=== PATIENT | female | born 1950 | race Caucasian/White ===

== ENCOUNTER → 2019-11-06 12:39 | Outpatient (CLI) | payer MEDICARE, OTHER, SELFPAY ==
--- NOTE | 2019-11-06 | DI.MRI.S_ITS ---
PROCEDURE: MR CERVICAL SPINE WO CON INDICATIONS: Cervicalgia TECHNIQUE: Noncontrast sagittal T1 spin echo and T2 fast spin echo, sagittal STIR, foraminal oblique sagittal T2 fast spin echo, and axial gradient echo or T2 fast spin echo through the cervical spine. COMPARISON: [facility], RG, SPINE CERVICAL MIN 4VW, 09/20/2019, 11:22. FINDINGS: Image quality: Excellent. Alignment and Curvature: There is normal bony alignment. Bone Marrow: Mild reactive endplate changes noted adjacent to the C3-C4, C4-C5, C5-C6 and C6-C7 discs.. Spinal Cord: Visualized spinal cord has normal size and signal. No cerebellar tonsillar herniation. Paraspinous Soft Tissues: No paravertebral masses. Prevertebral soft tissues are normal in thickness. C2-C3: Loss of disc signal. Mild, diffuse disc bulge. Mild bilateral facet hypertrophy. No central stenosis. Mild right and moderate left neural foraminal narrowing. No neural compression. C3-C4: Loss of disc signal and height. Moderate, diffuse disc bulge. Mild bilateral facet hypertrophy. Mild bilateral uncovertebral joint hypertrophy. Moderate to severe narrowing of the central canal. Severe bilateral neural foraminal narrowing with compression of the exiting C4 nerve roots. C4-C5: Loss of disc signal and height. Moderate to severe diffuse disc bulge. Mild bilateral facet hypertrophy. Moderate bilateral uncovertebral joint hypertrophy. Severe narrowing of the central canal with mild compression of the cervical spinal cord. Severe bilateral neural foraminal narrowing with compression of the exiting C5 nerve roots. C5-C6: Loss of disc signal and height. Moderate, diffuse disc bulge. Central/right central disc protrusion superimposed on diffuse disc bulge. Severe narrowing of the central canal with compression of the cervical spinal cord. Mild bilateral facet hypertrophy. Moderate bilateral uncovertebral joint hypertrophy. Severe bilateral neural foraminal narrowing with compression of the exiting C6 nerve roots. C6-C7: Loss of disc signal and height. Moderate, diffuse disc bulge. Moderate-sized central disc protrusion. Severe narrowing of the central canal with compression of the cervical spinal cord. Mild bilateral facet hypertrophy. Moderate bilateral uncovertebral joint hypertrophy. Severe bilateral neural foraminal narrowing with compression of the exiting C7 nerve roots. C7-T1: Slight loss of disc signal. Moderate right and mild left facet hypertrophy. No central stenosis. Mild right neural foraminal narrowing. No neural compression. IMPRESSION: 1. Multilevel degenerative disc disease. 2. Multilevel facet and uncovertebral arthropathy. 3. Severe C4-C5, C5-C6 and C6-C7 central canal narrowing. Moderate to severe C3-C4 central canal narrowing. 4. Severe bilateral C3-C4, C4-C5, C5-C6 and C6-C7 neural foraminal narrowing with compression of the exiting bilateral C4 nerve roots, exiting bilateral C5 nerve roots, exiting bilateral C6 nerve roots and exiting bilateral C7 nerve roots. Dictated by: Catrina Oconnor MD, PhD on 11/06/2019 at 16:56 Approved by: Catrina Oconnor MD, PhD on 11/06/2019 at 17:04
== END ==
PROVIDERS: PCP Specialist; Referring Provider Specialist; Visit Provider Orthopaedic Surgery
DX: M50.31 Other cervical disc degeneration, high cervical region (principal); M48.02 Spinal stenosis, cervical region; M47.812 Spondylosis without myelopathy or radiculopathy, cervical region
CPT/HCPCS: 72141

== ENCOUNTER 2020-09-02 11:03 | Outpatient (CLI) | payer MEDICARE, OTHER, SELFPAY ==
[2020-09-02] VITALS (10 sets, daily range): BP systolic 128–164; BP diastolic 78–101; PULSE 80–108; RESP 16–24; TEMP 35.8–37.1; O2SAT 96–99; BMI 53.4
--- NOTE | 2020-09-02 | DI.RAD.S_ITS ---
PROCEDURE: FL MEYELOGRAM SPINE CERVICAL WITH SEDATION COMPARISON: None. INDICATIONS: Arthrodesis status abnormalities of gait Technique: Potential risks and benefits of procedure fully explained to the patient. Patient reported clear understanding of the potential risks and benefits of the procedure and provided written, informed consent on September 02, 2020. Patient taken to the fluoroscopy suite placed in a oblique prone position on the fluoroscopy table. Access site at the L2-L3 level localized using fluoroscopic guidance. Access site prepped and draped in usual sterile fashion. Access site locally anesthetized using approximately 8 cubic centimeters 1% lidocaine solution. A 22 gauge spinal needle was advanced under fluoroscopic guidance into the intrathecal space at the L2-L3 level. 10 cubic centimeters of Isovue M 300 was injected the axis needle into the intrathecal space. Accessed needle was removed. Patient was placed in a head-down position to permit passage of contrast material from lumbar spine to the cervical spine. Procedure was terminated at this point. Patient was sent to the CT scanner in both hemodynamically neurologically stable condition. No immediate complications. 15 minutes of conscious sedation was administered during the study. Conscious sedation consisted of a total of 1 milligram of Versed and 50 micrograms of fentanyl IV. Patient's vital signs were continuously monitored by nursing staff during the procedure. IMPRESSION: Successful fluoroscopic guided cervical spine myelogram. No immediate complications. Dictated by: Catrina Oconnor MD, PhD on 09/02/2020 at 15:32 Approved by: Catrina Oconnor MD, PhD on 09/02/2020 at 15:37
--- NOTE | 2020-09-02 | DI.MRI.S_ITS ---
PROCEDURE: MR THORACIC SPINE WO CON INDICATIONS: Arthrodesis status abnormalities of gait TECHNIQUE: Noncontrast sagittal T1 spine echo and T2 fast spin echo, sagittal STIR, axial T1 and T2 fast spin echo through the thoracic spine. COMPARISON: None. FINDINGS: Image quality: Degraded by patient motion artifact. Alignment and Curvature: There is normal bony alignment. Bone Marrow: Small benign intraosseous hemangioma noted in the T5 vertebral body. Mild reactive endplate changes noted adjacent to the T6-T7 disc.. No acute vertebral body compression fractures. Spinal Cord: Visualized spinal cord is normal in size and signal. Paraspinous Soft Tissues: No paravertebral masses. Miscellaneous: Mild degenerative disc changes noted throughout the thoracic spine. Small right central T3-T4 disc protrusion. No central stenosis. No neural foraminal narrowing. No neural compression. IMPRESSION: 1. Mild multilevel degenerative disc disease. 2. No central stenosis. 3. No neural foraminal narrowing. 4. No neural compression. 5. No abnormal spinal cord signal within limitations related to motion artifact. Dictated by: Catrina Oconnor MD, PhD on 09/02/2020 at 14:55 Approved by: Catrina Oconnor MD, PhD on 09/02/2020 at 14:58
[2020-09-02 12:28] LABS: Hemoglobin 11.9 g/dL (12.0-16.0); Mean Corpuscular Hemoglobin 30.3 PG (26-34); Mean Corpuscular Volume 91.8 fL (80-100); Platelet Count 285 X10^3/uL (150-400); Red Blood Cell Count 3.92 X10^6/uL (4.0-5.2); White Blood Cell Count 6.8 X10^3/uL (4.5-11.0)
[2020-09-02 12:37] LABS: Prothrombin Time 11.6 SECONDS (10.1-12.7)
[2020-09-02 12:39] LABS: PTT Partial Thromboplastin Tim 35 SECONDS (26.4-36.2)
--- NOTE | 2020-09-02 13:10 | SUR.PREOP ---
TO DI at 1305
[2020-09-02] MEDS: MIDAZOLAM 2 MG/2 ML VIAL 1 MG IV (13:36)
[2020-09-02] MEDS: fentaNYL 100 MCG/2 ML INJ 50 MCG IV (13:38)
--- NOTE | 2020-09-02 14:02 | DI.CT.S_ITS ---
PROCEDURE: CT CERVIAL SPINE W CON INDICATIONS: Arthrodesis status abnormalities of gait TECHNIQUE: After the administration of 10mL intrathecal contrast, 3 mm thick sections acquired from the skull base to the T1 level. Sagittal and coronal reformats were then constructed. For radiation dose reduction, the following was used: automated exposure control, adjustment of mA and/or kV according to patient size. COMPARISON: [facility], MR, MR CERVICAL SPINE WO CON, 11/06/2019, 13:15. [facility], RF, FL MEYELOGRAM SPINE CERVICAL, 09/02/2020, 13:23. FINDINGS: Image quality: Excellent. Bones and alignment: No acute fracture. There is mild reversal of the normal cervical lordosis. Postsurgical changes related to C5-C7 arthrodesis with paraspinal shara and articular pillar screws. ACDF of the C5-C7 vertebral bodies. Hardware appears grossly intact. No evidence of loosening. Diffuse osteopenia. Multilevel degenerative endplate sclerosis and spurring. Diffuse facet arthropathy. Mild to moderate narrowing of the remaining cervical disc spaces. Soft tissues: No paraspinal masses. Prevertebral soft tissues are normal in thickness. Visualized neck vasculature appears normal in size. C2-C3: No high-grade canal stenosis. Mild right foraminal narrowing. Mild left foraminal stenosis. No interval change since the prior MRI dated 11/06/19 C3-C4: Mild canal narrowing. Moderate bilateral foraminal stenoses. No definite interval change accounting for differences in imaging modality. C4-C5: Moderate canal stenosis. Severe bilateral foraminal stenoses with nerve root compression on both sides. No definite interval change. C5-C6: Mild canal narrowing is present. Moderate bilateral foraminal stenoses although suboptimal evaluation secondary to hardware streak artifact. No definite interval change C6-C7: Mild canal narrowing. Severe right foraminal stenosis with nerve root compression. Moderate left foraminal stenosis. Findings appear similar to the prior study C7-T1: Mild canal narrowing. Moderate left foraminal stenosis. Moderate to severe right foraminal narrowing with questionable nerve root compression. No definite interval change. Miscellaneous: Visualized intracranial structures appear unremarkable. IMPRESSION: Postsurgical changes at C5-C7 as above. Reversal of the normal cervical lordosis, multilevel spondylosis and facet arthropathy. Moderate C4-C5 canal narrowing. Numerous bilateral foraminal stenoses as detailed above by spinal level. Dictated by: Campbell Simmons M.D. on 09/02/2020 at 15:31 Approved by: Campbell Simmons M.D. on 09/02/2020 at 16:08
--- NOTE | 2020-09-02 14:16 | SUR.PHASEII ---
[address], HOB elevated 45 degrees. Pt c/o headache 07/17. Seizure pads placed on the bed as a precaution. Dr. Oconnor called to see if patient may take her carvidopa and tylenol. ordered to hold carvidopa until 4 hours post procedure, will ID patient's tylenol with pharmacy. Meal ordered and juice given.
[2020-09-02] MEDS: ACETAMINOPHEN 325 MG TABLET 650 MG PO (15:32)
--- NOTE | 2020-09-02 15:34 | SUR.PHASEII ---
Medicated for neck pain; denies headache. Ate lunch, tolerated well. Dr. Oconnor was called approx 1500 to see if patient had his permission to ambulate to the bathroom. Permission given. Patient ambulate with RN standby; Voided. Returned to bed, has no further needs at this time, prefers to rest. Lights remain dimmed.
--- NOTE | 2020-09-02 15:40 | SUR.PHASEII ---
Patient under frequent observation throughout [facility] stay, seems more comfortable and relaxed than upon return from her procedure. No evidence seen of seizure activity.
--- NOTE | 2020-09-02 17:17 | SUR.PHASEII ---
Continues to rest comfortably without any evidence of seizure disorder. Pt is anxious to go home and is asking about getting out as soon as possible. She [place] ferry. Site remains CDI
== END 2020-09-02 18:17 | disposition home or self-care (01) ==
PROVIDERS: PCP Physician Assistant Medical; Referring Provider Physician Assistant; Visit Provider Physician Assistant
DX: R26.9 Unspecified abnormalities of gait and mobility (principal); M47.12 Other spondylosis with myelopathy, cervical region; Z98.1 Arthrodesis status
CPT/HCPCS: 36415; 61055; 62284; 72126; 72146; 72240; 85027; 85610; 85730; J2250; J3010

== ENCOUNTER → 2023-01-23 09:44 | Outpatient (CLI) | payer MEDICARE, OTHER, SELFPAY ==
--- NOTE | 2023-01-23 09:46 | DI.MRI.S_ITS ---
PROCEDURE: MR CERVICAL SPINE WO CON INDICATIONS: cervicalgia, fusion of cervical spine, other radic TECHNIQUE: Noncontrast sagittal T1 spin echo and T2 fast spin echo, sagittal STIR, foraminal oblique sagittal T2 fast spin echo, and axial gradient echo or T2 fast spin echo through the cervical spine. COMPARISON: [facility], CT, CT CERVIAL SPINE W CON, 09/02/2020, 13:47. [facility], MR, MR CERVICAL SPINE WO CON, 11/06/2019, 13:15. FINDINGS: Image quality: Excellent. Alignment and Curvature: Remote ACDF at C5 through C7 with anterior plate and screw fixation and interbody spacer material. Additionally, remote bilateral posterior lateral shara and facet screw fusion. This was present at the time of the most recent prior study, a cervical spine CT of 09/02/2020. Trace anterolisthesis of C7 on T1. Bone Marrow: Marrow demonstrates normal overall signal. Spinal Cord: Visualized spinal cord has normal size and signal. No cerebellar tonsillar herniation. Paraspinous Soft Tissues: No paravertebral masses. Prevertebral soft tissues are normal in thickness. C2-C3: Disc bulge with minimal central posterior disc protrusion abutting the cord. Moderate canal stenosis. AP diameter of the central canal is 8.4 mm. Bilateral facet hypertrophy, exuberant on the left. Severe left foraminal narrowing with left foraminal C3 nerve root impingement. C3-C4: Short pedicles. Diffuse disc bulge with mild central posterior disc protrusion. There is indentation on the cord diffusely anteriorly. Posterior ligamentous hypertrophy abuts the cord posteriorly. Severe canal stenosis. AP diameter of the central canal is 7.4 mm. Bilateral uncovertebral joint hypertrophy and facet hypertrophy. Facet hypertrophy is exuberant on the right. Severe bilateral foraminal narrowing with bilateral foraminal C4 nerve root impingement. C4-C5: Posterior disc bulge indents on the cord. There is a degree of canal stenosis. Axial imaging is nondiagnostic secondary to excessive metallic artifact. Parasagittal oblique imaging bilaterally suggests severe bilateral foraminal narrowing with bilateral foraminal C5 nerve root impingement. C5-C6: Fused. Extensive metallic artifact on axial imaging. On sagittal imaging, there is no suggestion of canal stenosis. Parasagittal oblique imaging suggests at least bilateral moderate foraminal narrowing. C6-C7: Fused. Extensive metal artifact obscures detail on axial imaging. Sagittal imaging suggests a degree of canal stenosis. Parasagittal oblique imaging suggests at least moderate bilateral foraminal narrowing. C7-T1: There is no central canal stenosis. Axial imaging is obscured by metallic artifact. IMPRESSION: 1. Previous anterior and posterior lateral fusion at C5 through C7. This results in significant metallic artifact and decreases sensitivity for identifying pathology at these levels. 2. There is moderate canal stenosis at C2-C3 and severe canal stenosis at C3-C4. 3. At C4-C5, there is likely a degree of canal stenosis. The axial images are significantly affected by metallic artifact. 4. There is severe left foraminal narrowing at C2-C3 and severe bilateral foraminal narrowing at C3-C4. There is likely severe bilateral foraminal narrowing at C4-C5. There is suggestion of probable bilateral foraminal narrowing at C6-C7. Comment: If surgery is contemplated in this patient, in further anatomical evaluation is required, consider repeat CT cervical myelography versus noncontrast CT of the cervical spine. Dictated by: Aubrey Alamo M.D. on 01/24/2023 at 15:09 Approved by: Aubrey Alamo M.D. on 01/24/2023 at 15:45
== END ==
PROVIDERS: PCP Physician Assistant Medical; Referring Provider Physical Medicine & Rehabilitation Sports Medicine; Visit Provider Physical Medicine & Rehabilitation Sports Medicine
DX: M48.02 Spinal stenosis, cervical region (principal); M47.22 Other spondylosis with radiculopathy, cervical region; M54.2 Cervicalgia; Z98.1 Arthrodesis status
CPT/HCPCS: 72141